=== PATIENT | male | born 1985 | race African-American/Black ===

== ENCOUNTER 2016-12-20 15:43 | Inpatient (IN) | payer OTHER ==
[2016-12-20 16:31] VITALS: BMI 33.5
--- NOTE | 2016-12-20 17:11 | HP ---
Admission ROS [facility] - [facility] Chief Complaint: I WANT TO GO TO REHAB Allergies/Adverse Reactions: Allergies Allergy/AdvReac Type Severity Reaction Status Date / Time No Known Allergies Allergy Verified 12/20/16 16:45 History of Present Illness: 31 YEARS OLD MALE WITH LONG HISTORY OF ALCOHOL PCP COCAINE DEPENDENCE HAS HYPERTENSION AND DEPRESSION IS ADMITTED TO REHAB Exam Limitations: No Limitations - Ebola screening Have you traveled outside of the country in the last 21 days: No Have you had contact with anyone from an Ebola affected area: No Have you been sick,other than usual withdrawal symptoms: No Do you have a fever: No - Review of Systems Constitutional: Weight Stable EENT: reports: Nose Congestion Respiratory: reports: No Symptoms reported Cardiac: reports: No Symptoms Reported GI: reports: No Symptoms Reported : reports: No Symptoms Reported Musculoskeletal: reports: Back Pain (ARTHRITIS) Integumentary: reports: No Symptoms Reported Neuro: reports: No Symptoms reported Endocrine: reports: No Symptoms Reported Hematology: reports: No Symptoms Reported Psychiatric: reports: Judgement Intact, Orientated x3, Depressed Other Systems: Reviewed and Negative Patient History - Patient Medical History Hx Anemia: No Hx Asthma: No Hx Chronic Obstructive Pulmonary Disease (COPD): No Hx Cancer: No Hx Cardiac Disorders: No Hx Congestive Heart Failure: No Hx Hypertension: Yes Hx Hypercholesterolemia: No Hx Pacemaker: No HX Cerebrovascular Accident: No Hx Seizures: No Hx Dementia: No Hx Diabetes: No Hx Gastrointestinal Disorders: No Hx Liver Disease: No Hx Genitourinary Disorders: No Hx Sexually Transmitted Disorders: No Hx Renal Disease (ESRD): No Hx Thyroid Disease: No Hx Human Immunodeficiency Virus (HIV): No Hx Hepatitis C: No Hx Depression: Yes Hx Suicide Attempt: No Hx Bipolar Disorder: No Hx Schizophrenia: No - Patient Surgical History Past Surgical History: No Hx Neurologic Surgery: No Hx Cataract Extraction: No Hx Cardiac Surgery: No Hx Lung Surgery: No Hx Breast Surgery: No Hx Breast Biopsy: No Hx Abdominal Surgery: No Hx Appendectomy: No Hx Cholecystectomy: No Hx Genitourinary Surgery: No Hx Orthopedic Surgery: No - PPD History Previous Implant?: Yes Documented Results: Negative w/proof Implanted On Prior R Admission?: No Date: 12/16/16 PPD to be Administered?: No - Smoking Cessation Smoking history: Former smoker Have you smoked in the past 12 months: No Aproximately how many cigarettes per day: 0 Hx Chewing Tobacco Use: No Initiated information on smoking cessation: No - Substance & Tx. History Hx Alcohol Use: Yes Hx Substance Use: Yes Substance Use Type: Alcohol Hx Substance Use Treatment: Yes (12/05/16 [facility]) - Substances Abused PCP Route: Smoking Frequency: Daily Amount used: $70 Age of first use: 12 Date of Last Use: 12/05/16 Alcohol-cognac Route: Oral Frequency: Daily Amount used: 2 pts. Age of first use: 12 Date of Last Use: 12/05/16 Family Disease History - Family Disease History Family Disease History: Other: Father ( HIV), Mother ( HIV) Admission Physical Exam [facility] - Vital Signs Vital Signs: Vital Signs - 24 hr 12/20/16 16:29 Temperature 96.4 F L Pulse Rate 94 H Respiratory 20 Rate Blood Pressure 143/79 - Physical General Appearance: Yes: No Apparent Distress, Appropriately Dressed, Obese HEENTM: Yes: Hearing grossly Normal, Normal ENT Inspection, Normocephalic, Normal Voice Respiratory: Yes: Chest Non-Tender, Lungs Clear, Normal Breath Sounds, No Respiratory Distress, No Accessory Muscle Use Neck: Yes: Supple, Trachea in good position Breast: Yes: Breasts Symetrical Cardiology: Yes: Regular Rhythm, S1, S2, Tachycardia Abdominal: Yes: Normal Bowel Sounds, Non Tender, Soft Genitourinary: Yes: Within Normal Limits Back: Yes: Normal Inspection Musculoskeletal: Yes: full range of Motion, Gait Steady Extremities: Yes: Normal Inspection, Normal Range of Motion, Non-Tender Neurological: Yes: Fully Oriented, Alert, Motor Strength 5/5, Normal Response, Depressed Affect Integumentary: Yes: Warm Lymphatic: Yes: Within Normal Limits - Diagnostic (1) Alcohol dependence with uncomplicated withdrawal Current Visit: Yes Status: Acute (2) PCP dependence Current Visit: Yes Status: Acute (3) Obesity Current Visit: Yes Status: Chronic Qualifiers: Obesity type: unspecified obesity type Obesity classification: adult class 1 (BMI 30 ? 34.9) Cleared for Admission [facility] - Detox or Rehab [facility] Level of Care: Observation Bed Detox Regimen/Protocol: Not Applicable Claeared for Rehab Admission: Yes [facility] Breath Alcohol Content Breath Alcohol Content: 0 Urine Drug Screen - Results Drug Screen Negative: No Urine Drug Screen Results: PCP-Phencyclidine
[2016-12-20] MEDS ORDERED: MAG HYDROX/AL HYDROX/SIMETH 30 ML UNIT-DOSE CUP PO PRN (17:22)
[2016-12-20] MEDS ORDERED: hydrOXYzine PAMOATE 50 MG CAPSULE (FP) PO PRN (17:22)
[2016-12-20] MEDS ORDERED: IBUPROFEN 400 MG TABLET (FP) PO PRN (17:22)
[2016-12-20] MEDS ORDERED: guaiFENesin/D-METHORPHAN HB 10 ML UNIT-DOSE CUPS PO PRN (17:22)
[2016-12-20] MEDS ORDERED: MAGNESIUM CITRATE 300 ML BOTTLE PO PRN (17:22)
[2016-12-20] MEDS ORDERED: ACETAMINOPHEN 325 MG TABLET (FP) PO PRN (17:22)
[2016-12-20] MEDS ORDERED: MAGNESIUM HYDROX 2400MG/30ML ORAL SUSPENSION 30 ML CUP PO PRN (17:22)
[2016-12-20] MEDS ORDERED: P-EPHED 60MG/TRIPROLIDI 2.5MG TABLET PO PRN (17:22)
[2016-12-20] MEDS ORDERED: MENTHOL/PHENOL 1 EACH UD MM PRN (17:22)
[2016-12-20] MEDS ORDERED: LOPERAMIDE HCL 2 MG CAPSULE PO PRN (17:22)
[2016-12-20] MEDS ORDERED: cloNIDine HCL 0.1 MG TABLET PO PRN (17:24)
[2016-12-20 22:14] LABS: URINE APPEARANCE SLCLOUDY; URINE BILIRUBIN NEGATIVE (NEGATIVE); URINE BLOOD NEGATIVE (NEGATIVE); URINE COLOR YELLOW; URINE GLUCOSE (UA) NEGATIVE (NEGATIVE); URINE KETONE NEGATIVE (NEGATIVE); URINE LEUK ESTERASE NEGATIVE (NEGATIVE); URINE NITRITE NEGATIVE (NEGATIVE); URINE PROTEIN NEGATIVE (NEGATIVE); URINE UROBILINOGEN NEGATIVE mg/dL (0.2-1.0)
[2016-12-20] MEDS: THIAMINE HCL 100 MG TABLET (FP) PO SCH (22:35)
[2016-12-20] MEDS: SODIUM CHLORIDE NASAL SPRAY 44 ML BOTTLE NS SCH (22:48)
[2016-12-21] MEDS: SODIUM CHLORIDE NASAL SPRAY 44 ML BOTTLE NS SCH ×3 (06:37→22:00)
[2016-12-21 10:05] LABS: MCH 30.1 pg (25.7-33.7); MCHC 33.5 g/dl (32.0-35.9); MEAN CELL VOLUME 89.9 fl (80-96); PLATELET COUNT 238 K/MM3 (134-434); RDW 13.8 % (11.9-15.9); WHITE BLOOD COUNT 7.1 K/mm3 (4.0-10.0)
[2016-12-21 10:31] LABS: ALBUMIN 3.8 g/dl (3.4-5.0); ANION GAP 6 (8-16); CALCIUM 9.2 mg/dL (8.5-10.1); CO2 29 mmol/L (21-32); GLUCOSE,RANDOM 79 mg/dL (74-106)
[2016-12-21] MEDS: PRENATAL VITAMINS W/ FOLIC ACID TABLET (FP) PO SCH (10:33)
[2016-12-21 10:35] LABS: ALK PHOS 115 U/L (45-117); BILIRUBIN,TOTAL 0.4 mg/dL (0.2-1.0); CREATININE 1.1 mg/dL (0.7-1.3); SGOT/AST 32 U/L (15-37); SGPT/ALT 72 U/L (12-78); TOT PROT 7.9 g/dl (6.4-8.2)
--- NOTE | 2016-12-21 10:57 | HP ---
Psychiatrist Admission - Data Date of interview: 12/21/16 Admission source: [facility] [address] detox Identifying data: This is the first admission to [address] [place] [address] rehasbilitation for this 31 years old AA single father of 12 years old girl ( child resides with her mother).Patient is homeless,unemployed,no financial support. Medical History: Overweight. Psychiatric History: no previos psychiatric history,but reports feeling depressed due to his situation(no job,no housing).Patient is willing to start medications for depression. Physical/Sexual Abuse/Trauma History: denies Vital Signs: Vital Signs - 24 hr 12/20/16 12/21/16 12/21/16 16:29 03:30 07:03 Temperature 96.4 F L 98.4 F Pulse Rate 94 H 71 Respiratory 20 20 18 Rate Blood Pressure 143/79 115/69 Allergies/Adverse Reactions: Allergies Allergy/AdvReac Type Severity Reaction Status Date / Time No Known Allergies Allergy Verified 12/20/16 16:45 Date of last physical exam: 12/20/16 Concur with the findings of this exam: Yes - Substance Abuse/Tx History Hx Alcohol Use: Yes (reports drinking since 12 yo,cognac 1 bottle daily) Hx Substance Use: Yes (PCP since 12 yo,10 bags daily) Substance Use Type: Alcohol Hx Substance Use Treatment: Yes (completed [facility] in 1997) - Admission Criteria Previous failed treatment: Yes Poor recovery environment: Yes Comorbidities: Yes Lacks judgement: Yes Mental Status Exam - Mental Status Exam Alert and Oriented to: Time, Place, Person Cognitive Function: Grossly Intact Patient Appearance: Well Groomed Mood: Sad Affect: Mood Congruent Patient Behavior: Cooperative Speech Pattern: Clear Voice Loudness: Normal Thought Process: Goal Oriented Thought Disorder: Not Present Hallucinations: Denies Suicidal Ideation: Denies Homicidal Ideation: Denies Insight/Judgement: Fair Sleep: Well Appetite: Good Muscle strength/Tone: Normal Gait/Station: Normal Psychiatric Findings - Problem List ([place] 1, 2,3) (1) PCP dependence Current Visit: Yes Status: Chronic (2) Obesity Current Visit: Yes Status: Chronic Qualifiers: Obesity type: unspecified obesity type Obesity classification: adult class 1 (BMI 30 ? 34.9) (3) Alcohol dependence Current Visit: Yes Status: Chronic (4) Substance induced mood disorder Current Visit: Yes Status: Chronic - Initial Treatment Plan Initial Treatment Plan: Start Zoloft 50 mg po daily. Will monitor progress.
--- NOTE | 2016-12-21 12:45 | EKG ---
Test Reason : Blood Pressure : / mmHG Vent. Rate : 072 BPM Atrial Rate : 072 BPM P-R Int : 144 ms QRS Dur : 104 ms QT Int : 408 ms P-R-T Axes : 029 030 036 degrees QTc Int : 446 ms NORMAL SINUS RHYTHM RSR' OR QR PATTERN IN V1 SUGGESTS RIGHT VENTRICULAR CONDUCTION DELAY NONSPECIFIC T WAVE ABNORMALITY ABNORMAL ECG NO PREVIOUS ECGS AVAILABLE Confirmed by KADE JOVEL, KATLYN ([id number]) on 12/21/2016 12:44:27 PM Referred By: Rickie Galloway Confirmed By:KATLYN BRAUN MD
[2016-12-21 13:03] LABS: HIV 1 & 2 AB NEGATIVE; HIV 1 AGp24 NEGATIVE
[2016-12-21] MEDS: THIAMINE HCL 100 MG TABLET (FP) PO SCH (22:00)
[2016-12-22] MEDS: SODIUM CHLORIDE NASAL SPRAY 44 ML BOTTLE NS SCH ×4 (06:27→23:35)
[2016-12-22] MEDS: PRENATAL VITAMINS W/ FOLIC ACID TABLET (FP) PO SCH (10:50)
--- NOTE | 2016-12-22 11:35 | EKG ---
Test Reason : Blood Pressure : / mmHG Vent. Rate : 064 BPM Atrial Rate : 064 BPM P-R Int : 140 ms QRS Dur : 118 ms QT Int : 450 ms P-R-T Axes : 020 002 092 degrees QTc Int : 464 ms SINUS RHYTHM WITH OCCASIONAL PREMATURE VENTRICULAR COMPLEXES POSSIBLE [id number] ABNORMAL ECG WHEN COMPARED WITH ECG OF 20-DEC-2016 22:38, PREMATURE VENTRICULAR COMPLEXES ARE NOW PRESENT [id number] IS NOW PRESENT Confirmed by JIMY POLK MD ([id number]) on 12/22/2016 11:35:21 AM Referred By: Rickie Galloway Confirmed By:JIMY POLK MD
[2016-12-22] MEDS: THIAMINE HCL 100 MG TABLET (FP) PO SCH (23:08)
[2016-12-23] MEDS: SODIUM CHLORIDE NASAL SPRAY 44 ML BOTTLE NS SCH ×3 (06:32→21:33)
[2016-12-23] MEDS: PRENATAL VITAMINS W/ FOLIC ACID TABLET (FP) PO SCH (10:35)
[2016-12-23] MEDS: THIAMINE HCL 100 MG TABLET (FP) PO SCH (21:33)
[2016-12-24] MEDS: SODIUM CHLORIDE NASAL SPRAY 44 ML BOTTLE NS SCH ×3 (06:34→21:50)
[2016-12-24] MEDS: PRENATAL VITAMINS W/ FOLIC ACID TABLET (FP) PO SCH (10:40)
[2016-12-24] MEDS: THIAMINE HCL 100 MG TABLET (FP) PO SCH (21:51)
[2016-12-25] MEDS: SODIUM CHLORIDE NASAL SPRAY 44 ML BOTTLE NS SCH ×3 (06:34→21:31)
[2016-12-25] MEDS: PRENATAL VITAMINS W/ FOLIC ACID TABLET (FP) PO SCH (10:25)
[2016-12-25] MEDS: THIAMINE HCL 100 MG TABLET (FP) PO SCH (21:32)
[2016-12-26] MEDS: SODIUM CHLORIDE NASAL SPRAY 44 ML BOTTLE NS SCH ×3 (06:23→21:55)
[2016-12-26] MEDS: PRENATAL VITAMINS W/ FOLIC ACID TABLET (FP) PO SCH (10:04)
[2016-12-26] MEDS: THIAMINE HCL 100 MG TABLET (FP) PO SCH (21:54)
[2016-12-27] MEDS: SODIUM CHLORIDE NASAL SPRAY 44 ML BOTTLE NS SCH ×3 (07:05→21:58)
[2016-12-27] MEDS: PRENATAL VITAMINS W/ FOLIC ACID TABLET (FP) PO SCH (10:36)
[2016-12-27] MEDS: THIAMINE HCL 100 MG TABLET (FP) PO SCH (21:58)
[2016-12-28] MEDS: SODIUM CHLORIDE NASAL SPRAY 44 ML BOTTLE NS SCH ×3 (06:30→21:36)
[2016-12-28] MEDS: PRENATAL VITAMINS W/ FOLIC ACID TABLET (FP) PO SCH (10:48)
[2016-12-28] MEDS: THIAMINE HCL 100 MG TABLET (FP) PO SCH (21:36)
[2016-12-29] MEDS: SODIUM CHLORIDE NASAL SPRAY 44 ML BOTTLE NS SCH ×4 (06:24→22:00)
[2016-12-29] MEDS: PRENATAL VITAMINS W/ FOLIC ACID TABLET (FP) PO SCH (10:41)
[2016-12-29] MEDS: THIAMINE HCL 100 MG TABLET (FP) PO SCH (22:00)
[2016-12-29] MEDS: diphenhydrAMINE HCL 50 MG CAPSULE PO PRN (22:00)
[2016-12-30] MEDS: SODIUM CHLORIDE NASAL SPRAY 44 ML BOTTLE NS SCH ×3 (06:19→21:44)
[2016-12-30] MEDS: PRENATAL VITAMINS W/ FOLIC ACID TABLET (FP) PO SCH (10:17)
[2016-12-30] MEDS: THIAMINE HCL 100 MG TABLET (FP) PO SCH (21:44)
[2016-12-31] MEDS: SODIUM CHLORIDE NASAL SPRAY 44 ML BOTTLE NS SCH ×3 (06:50→22:07)
[2016-12-31] MEDS: PRENATAL VITAMINS W/ FOLIC ACID TABLET (FP) PO SCH (10:55)
[2016-12-31] MEDS: THIAMINE HCL 100 MG TABLET (FP) PO SCH (22:07)
[2017-01-01] MEDS: diphenhydrAMINE HCL 50 MG CAPSULE PO PRN ×2 (00:18→22:06)
[2017-01-01] MEDS: SODIUM CHLORIDE NASAL SPRAY 44 ML BOTTLE NS SCH ×3 (06:33→22:05)
[2017-01-01] MEDS: PRENATAL VITAMINS W/ FOLIC ACID TABLET (FP) PO SCH (10:20)
[2017-01-01] MEDS: THIAMINE HCL 100 MG TABLET (FP) PO SCH (22:05)
[2017-01-02] MEDS: SODIUM CHLORIDE NASAL SPRAY 44 ML BOTTLE NS SCH ×3 (06:36→22:00)
[2017-01-02] MEDS: PRENATAL VITAMINS W/ FOLIC ACID TABLET (FP) PO SCH (10:30)
--- NOTE | 2017-01-02 17:08 | PN ---
Psychiatric Progress Note Vital Signs: Vital Signs Period Temp Pulse Resp BP Sys/Torres Pulse Ox Last 24 Hr 97.8 F 86 20-20 122/79 Date of Session: 01/02/17 Chief Complaint:: Discharge Note HPI: Patient addressing Alcohol and Phencyclidine Dependence comorbid with Substance-Induced Mood Disorder ROS: Obesity Current Medications: Active Medications Generic Name Dose Route Start Last Admin Trade Name Freq PRN Reason Stop Dose Admin Acetaminophen 650 mg 12/20/16 17:22 Tylenol - PO Q4H PRN PAIN Al Hydroxide/Mg Hydroxide 30 ml 12/20/16 17:22 Mylanta Oral Suspension - PO Q6H PRN DYSPEPSIA Clonidine 0.1 mg 12/20/16 17:24 Catapres - PO Q6H PRN HYPERTENSION Diphenhydramine HCl 50 mg 12/20/16 17:22 01/01/17 22:06 Benadryl - PO 50 mg HSMR1 PRN Administration INSOMNIA Eucalyptus/Menthol/Phenol/Sorbitol 1 each 12/20/16 17:22 Cepastat Lozenge - MM Q4H PRN SORE THROAT Guaifenesin 10 ml 12/20/16 17:22 Robitussin Dm - PO Q6H PRN COUGH Hydroxyzine Pamoate 50 mg 12/20/16 17:22 Vistaril - PO Q4H PRN AGITATION Ibuprofen 400 mg 12/20/16 17:22 Motrin - PO Q6H PRN SEVERE PAIN Loperamide HCl 4 mg 12/20/16 17:22 Imodium - PO Q6H PRN DIARRHEA Magnesium Citrate 300 ml 12/20/16 17:22 Citroma - PO Q48H PRN CONSTIPATION Magnesium Hydroxide 30 ml 12/20/16 17:22 Milk Of Magnesia - PO DAILY PRN CONSTIPATION Multivit/Folic Acid/Iron 1 tab 12/21/16 10:00 01/02/17 10:30 Vitamins (Sjr) - PO Not Given DAILY CATHIE Pseudoephedrine/Triprolidine 1 combo 12/20/16 17:22 Actifed - PO TID PRN NASAL CONGESTION Sodium Chloride 2 spray 12/20/16 22:00 01/02/17 14:26 [place] - NS Not Given TID CATHIE Thiamine HCl 100 mg 12/20/16 22:00 01/01/17 22:05 Vitamin B1 - PO 100 mg HS CATHIE Administration Current Side Effect: No Lab tests ordered: Yes Lab tests reviewed: Yes Provider note:: Patient will complete this program on 01/03/17. 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. Told senior mortgage underwriter that from his participation in this program, he has learned the importance of establishing a sober support network in order to maintain abstinence. He is stable for discharge on 01/03/17 Total face to face time:: 35 Mental Status Exam - Mental Status Exam Alert and Oriented to: Time, Place, Person Cognitive Function: Fair Patient Appearance: Well Groomed Mood: Hopeful, Euthymic Affect: Appropriate Patient Behavior: Cooperative Speech Pattern: Clear Voice Loudness: Normal Thought Process: Intact, Goal Oriented Thought Disorder: Not Present Hallucinations: Denies Suicidal Ideation: Denies Homicidal Ideation: Denies Insight/Judgement: Fair Sleep: Fair Appetite: Good Muscle strength/Tone: Normal Gait/Station: Normal Psychiatric Treatment Plan - Problem List (1) Alcohol dependence Current Visit: Yes (2) Substance induced mood disorder Current Visit: Yes (3) Obesity Current Visit: Yes Qualifiers: Obesity type: unspecified obesity type Obesity classification: adult class 1 (BMI 30 ? 34.9) Initial treatment plan: Patient will be discharged tomorrow and referred to [facility] for terminal system operator treatment
[2017-01-02] MEDS: THIAMINE HCL 100 MG TABLET (FP) PO SCH (22:00)
[2017-01-03] MEDS: SODIUM CHLORIDE NASAL SPRAY 44 ML BOTTLE NS SCH (06:22)
[2017-01-03 07:05] VITALS: BP 126/80; PULSE 87; TEMP 97.7
[2017-01-03] MEDS: PRENATAL VITAMINS W/ FOLIC ACID TABLET (FP) PO SCH (09:22)
== END 2017-01-03 09:45 | disposition home or self-care (01) | DRG 772 ==
LOC: YASAS 15:43 → Y3W 19:00
PROVIDERS: ADMIT Psychiatry & Neurology Psychiatry; ATTEND Psychiatry & Neurology Psychiatry
PROC: HZ42ZZZ Group Counseling for Substance Abuse Treatment, Cognitive-Behavioral (ICD-10-PCS; principal; 2016-12-20)
DX: F10.20 Alcohol dependence, uncomplicated (principal); F16.20 Hallucinogen dependence, uncomplicated; F19.24 Other psychoactive substance dependence with psychoactive substance-induced mood disorder; E66.9 Obesity, unspecified; R00.0 Tachycardia, unspecified; Z68.33 Body mass index [BMI] 33.0-33.9, adult; Z87.891 Personal history of nicotine dependence
CPT/HCPCS: 36415; 80053; 81003; 85027; 86593; 86803; 87389; 93005; 93010